=== PATIENT | male | born 1960 | race Two or more races ===

== ENCOUNTER → 2020-12-01 | Day surgery (SDC) | payer OTHER ==
[~2020-12-01] VITALS: Ht 170.2 cm; Wt 85.3 kg
[~2020-12-01] MED LIST: ALPRAZOLAM ODT1 MG; DOLOGESIC 500-1 EACH; LEVOTHYROXINE25 MCG; NAPR500T14; OMEPRAZOLE40 MG; PERCOCET 5-3251 EACH PO; RECTICARE30 GM TOP; RISPERDAL2 MG; SIMVASTATIN40 MG; XANAX1 MG; ZESTRIL2.5 MG
== END | disposition home or self-care (01) ==
LOC: ER 04:56 → CIR.AMB 05:29 → ER 05:29 → O/R 08:50 → ER 08:50 → EDSTATUS 11:44 → O/R 19:45
PROVIDERS: Surgery; ATTEND General Practice
PROC: 06BY4ZC Excision of Hemorrhoidal Plexus, Percutaneous Endoscopic Approach (ICD-10-PCS; principal; 2020-12-01 12:56)
DX: K64.4 Residual hemorrhoidal skin tags (principal); K64.5 Perianal venous thrombosis; Z20.822 Contact with and (suspected) exposure to COVID-19